=== PATIENT | female | born 1955 | race Caucasian/White ===

== ENCOUNTER 2020-04-07 15:53 | Inpatient (IN) | payer OTHER ==
[~2020-04-07] VITALS: Ht 167.6 cm; Wt 114.9 kg
[2020-04-07 17:19] VITALS: BP 107/89
[2020-04-07 19:30] VITALS: BP 101/68
[2020-04-07 19:45] LABS: BASO % 0.3 % (0.0-1.0); EOS % 0.2 % (1.0-4.0); HEMATOCRIT 33.3 % (37.0-47.0); LYMPH % 17.5 % (27.0-41.0); MEAN CORPUSCULAR HGB 28.7 pg (27.0-31.0); MEAN CORPUSCULAR HGB CONC 33.3 g/dl (33.0-37.0); MEAN PLATELET VOLUME 9.5 fl (9.6-12.3); MONO # 0.2 10*3/uL (0.1-1.0); MONO % 3.9 % (3.0-9.0); NEUT # 4.6 10*3/uL (2.3-7.9); NEUT % 77.4 % (47.0-73.0); PLATELET COUNT AUTOMATED 268 10*3/uL (130-400); RED BLOOD COUNT 3.87 10*6/uL (4.10-5.10); RED CELL DISTRI WIDTH 14.9 % (0-14.5); WHITE BLOOD COUNT 5.9 10*3/uL (4.8-10.8)
[2020-04-07 20:05] LABS: ALBUMIN 3.2 gm/dl (3.1-4.5); ALKALINE PHOSPHATASE 55 U/L (45-117); BUN 12 mg/dl (7-24); CHLORIDE 88 mmol/L (98-107); CREATININE 0.69 mg/dL (0.55-1.02); POTASSIUM 3.8 mmol/L (3.5-5.1); SGOT/AST 40 IU/L (3-35); SGPT/ALT 46 U/L (12-78); SODIUM 124 mmol/L (136-145); TOTAL PROTEIN 7.7 gm/dL (6.4-8.2)
[2020-04-07 20:12] LABS: FREE T4 0.49 ng/dl (0.76-1.46); THYROID STIM HORMONE (HS) 36.9 uIU/ml (0.358-4.75)
[2020-04-07 23:51] VITALS: BP 104/78
[2020-04-08 04:13] VITALS: BP 107/71
[2020-04-08 07:50] VITALS: BP 114/50
[2020-04-08 09:36] LABS: BASO % 0.1 % (0.0-1.0); HEMATOCRIT 33.9 % (37.0-47.0); LYMPH # 0.7 10*3/uL (1.3-4.4); LYMPH % 9.5 % (27.0-41.0); MEAN CELL VOLUME 85.2 fl (81.0-99.0); MEAN CORPUSCULAR HGB 28.4 pg (27.0-31.0); MEAN CORPUSCULAR HGB CONC 33.3 g/dl (33.0-37.0); MEAN PLATELET VOLUME 9.5 fl (9.6-12.3); MONO # 0.2 10*3/uL (0.1-1.0); MONO % 3.2 % (3.0-9.0); NEUT % 86.2 % (47.0-73.0); PLATELET COUNT AUTOMATED 316 10*3/uL (130-400); RED BLOOD COUNT 3.98 10*6/uL (4.10-5.10); RED CELL DISTRI WIDTH 14.6 % (0-14.5)
[2020-04-08 09:46] LABS: ACT PARTIAL THROMBO TIME 32.7 SECONDS (20.0-32.1)
[2020-04-08 10:09] LABS: ALBUMIN 3.2 gm/dl (3.1-4.5); BUN 8 mg/dl (7-24); CHLORIDE 94 mmol/L (98-107); CREATININE 0.61 mg/dL (0.55-1.02); POTASSIUM 4.1 mmol/L (3.5-5.1); SGOT/AST 41 IU/L (3-35); SGPT/ALT 49 U/L (12-78); SODIUM 129 mmol/L (136-145); TOTAL PROTEIN 7.8 gm/dL (6.4-8.2)
[2020-04-08 10:13] LABS: ALKALINE PHOSPHATASE 55 U/L (45-117); CHOLESTEROL 207 mg/dL (<200); HDL CHOLESTEROL 35 mg/dl (40-60); LDH 400 U/L (84-246); LDL CHOLESTEROL 139 mg/dL (9-159); TRIGLYCERIDES 167 mg/dl (<150); VLDL CHOLESTEROL 33 mg/dL (6-40)
[2020-04-08 11:37] LABS: ABG BASE EXCESS 2.6 mmol/L (-2.0-2.0); ARTERIAL BLOOD GAS PH 7.461 (7.35-7.45)
[2020-04-08 11:48] LABS: FERRITIN 845.3 ng/mL (10.0-291.0); VITAMIN D, 25-HYDROXY 16.1 ng/mL (30-100)
[2020-04-08] MEDS ORDERED: SULFAMETHOXAZOLE-TMP (12:16)
[2020-04-08] MEDS ORDERED: ARMOUR THYROID90 M1 PO (12:16)
[2020-04-08 12:20] VITALS: BP 120/60
[2020-04-08 16:38] VITALS: BP 114/50
[2020-04-08 17:17] VITALS: BP 129/64
[2020-04-08 20:00] VITALS: BP 115/58
[2020-04-09] VITALS: BP 122/45
[2020-04-09 05:21] LABS: ALBUMIN 2.8 gm/dl (3.1-4.5); ALKALINE PHOSPHATASE 54 U/L (45-117); BUN 12 mg/dl (7-24); CHLORIDE 99 mmol/L (98-107); CREATININE 0.59 mg/dL (0.55-1.02); LDH 358 U/L (84-246); SGOT/AST 43 IU/L (3-35); SGPT/ALT 65 U/L (12-78); SODIUM 132 mmol/L (136-145); TOTAL PROTEIN 7.5 gm/dL (6.4-8.2)
[2020-04-09 06:58] LABS: HEMATOCRIT 34.5 % (37.0-47.0); MEAN CELL VOLUME 87.6 fl (81.0-99.0); MEAN CORPUSCULAR HGB 28.7 pg (27.0-31.0); MEAN CORPUSCULAR HGB CONC 32.8 g/dl (33.0-37.0); MEAN PLATELET VOLUME 10.1 fl (9.6-12.3); PLATELET COUNT AUTOMATED 392 10*3/uL (130-400); RED BLOOD COUNT 3.94 10*6/uL (4.10-5.10); RED CELL DISTRI WIDTH 14.8 % (0-14.5)
[2020-04-09 08:00] VITALS: BP 123/66
[2020-04-09 08:06] LABS: ATYPICAL LYMPHS 1 % (0-0); PLATELET SUFFICIENCY NORMAL (NORMAL); TOTAL CELLS COUNTED 100 #CELLS
[2020-04-09 12:00] VITALS: BP 119/71
[2020-04-09 16:00] VITALS: BP 128/81
[2020-04-09 20:00] VITALS: BP 119/48
[2020-04-10] VITALS: BP 122/64
[2020-04-10 06:28] LABS: HEMATOCRIT 33.5 % (37.0-47.0); MEAN CELL VOLUME 88.9 fl (81.0-99.0); MEAN CORPUSCULAR HGB 28.6 pg (27.0-31.0); MEAN CORPUSCULAR HGB CONC 32.2 g/dl (33.0-37.0); MEAN PLATELET VOLUME 9.4 fl (9.6-12.3); PLATELET COUNT AUTOMATED 442 10*3/uL (130-400); RED BLOOD COUNT 3.77 10*6/uL (4.10-5.10); RED CELL DISTRI WIDTH 14.9 % (0-14.5); WHITE BLOOD COUNT 8.3 10*3/uL (4.8-10.8)
[2020-04-10 06:54] LABS: ALBUMIN 2.8 gm/dl (3.1-4.5); ALKALINE PHOSPHATASE 56 U/L (45-117); BUN 16 mg/dl (7-24); CHLORIDE 100 mmol/L (98-107); CPK 57 U/L (26-192); CREATININE 0.62 mg/dL (0.55-1.02); LDH 349 U/L (84-246); POTASSIUM 4.2 mmol/L (3.5-5.1); SGOT/AST 49 IU/L (3-35); SGPT/ALT 88 U/L (12-78); SODIUM 137 mmol/L (136-145); TOTAL PROTEIN 7.3 gm/dL (6.4-8.2)
[2020-04-10 06:56] LABS: ATYPICAL LYMPHS 1 % (0-0); TOTAL CELLS COUNTED 100 #CELLS
[2020-04-10 06:57] LABS: OVALOCYTES FEW; PLATELET SUFFICIENCY HIGH (NORMAL); POLYCHROMASIA SLIGHT
[2020-04-10 08:00] VITALS: BP 155/66
[2020-04-10 12:00] VITALS: BP 134/57
[2020-04-10 16:00] VITALS: BP 125/53
[2020-04-10 20:00] VITALS: BP 147/71
[2020-04-10 22:02] LABS: ABG BASE EXCESS 3.8 mmol/L (-2.0-2.0); ARTERIAL BLOOD GAS PH 7.453 (7.35-7.45)
[2020-04-11] VITALS: BP 146/69
[2020-04-11 06:40] LABS: HEMATOCRIT 36.9 % (37.0-47.0); MEAN CELL VOLUME 89.6 fl (81.0-99.0); MEAN CORPUSCULAR HGB 27.9 pg (27.0-31.0); MEAN CORPUSCULAR HGB CONC 31.2 g/dl (33.0-37.0); MEAN PLATELET VOLUME 9.7 fl (9.6-12.3); PLATELET COUNT AUTOMATED 490 10*3/uL (130-400); RED BLOOD COUNT 4.12 10*6/uL (4.10-5.10); RED CELL DISTRI WIDTH 14.8 % (0-14.5)
[2020-04-11 06:58] LABS: ALBUMIN 2.9 gm/dl (3.1-4.5); ALKALINE PHOSPHATASE 64 U/L (45-117); BUN 18 mg/dl (7-24); CHLORIDE 100 mmol/L (98-107); CREATININE 0.67 mg/dL (0.55-1.02); LDH 312 U/L (84-246); POTASSIUM 4.1 mmol/L (3.5-5.1); SGOT/AST 47 IU/L (3-35); SGPT/ALT 119 U/L (12-78); SODIUM 137 mmol/L (136-145); TOTAL PROTEIN 7.6 gm/dL (6.4-8.2)
[2020-04-11 07:03] LABS: PLATELET SUFFICIENCY NORMAL (NORMAL); TOTAL CELLS COUNTED 100 #CELLS
[2020-04-11 07:22] LABS: CPK 33 U/L (26-192); TROPONIN I < 0.015 ng/ml (<0.045)
[2020-04-11 08:00] VITALS: BP 141/66
[2020-04-11 08:05] LABS: ARTERIAL BLOOD GAS PH 7.507 (7.35-7.45)
[2020-04-11 08:06] LABS: ABG BASE EXCESS 4.3 mmol/L (-2.0-2.0)
[2020-04-11 11:57] LABS: BILIRUBIN Negative (Negative); BLOOD Negative (Negative); CLARITY Clear (Clear); COLOR Yellow (Yellow); GLUCOSE Negative (Negative); KETONE Negative (Negative); LEUKO ESTERASE Negative (Negative); NITRITE Negative (Negative); PH 6.5 (4.5-8.0)
[2020-04-11 12:00] VITALS: BP 113/56
[2020-04-11 12:20] LABS: BACTERIA 1+
[2020-04-11 16:00] VITALS: BP 111/61
[2020-04-11 20:00] VITALS: BP 129/54
[2020-04-12] VITALS: BP 150/72
[2020-04-12 06:10] LABS: HEMATOCRIT 35.5 % (37.0-47.0); MEAN CELL VOLUME 91.5 fl (81.0-99.0); MEAN CORPUSCULAR HGB 28.4 pg (27.0-31.0); MEAN PLATELET VOLUME 9.1 fl (9.6-12.3); PLATELET COUNT AUTOMATED 466 10*3/uL (130-400); RED BLOOD COUNT 3.88 10*6/uL (4.10-5.10); RED CELL DISTRI WIDTH 15.1 % (0-14.5)
[2020-04-12 06:31] LABS: CHLORIDE 100 mmol/L (98-107); POTASSIUM 4.1 mmol/L (3.5-5.1); SODIUM 135 mmol/L (136-145)
[2020-04-12 06:38] LABS: ALBUMIN 2.8 gm/dl (3.1-4.5); ALKALINE PHOSPHATASE 54 U/L (45-117); BUN 18 mg/dl (7-24); CPK 29 U/L (26-192); CREATININE 0.57 mg/dL (0.55-1.02); LDH 272 U/L (84-246); SGOT/AST 34 IU/L (3-35); SGPT/ALT 102 U/L (12-78); TOTAL PROTEIN 6.8 gm/dL (6.4-8.2)
[2020-04-12 07:21] LABS: BURR CELLS FEW; OVALOCYTES FEW; PLATELET SUFFICIENCY HIGH (NORMAL); POLYCHROMASIA SLIGHT; TOTAL CELLS COUNTED 100 #CELLS
[2020-04-12 08:00] VITALS: BP 126/52; BP 126/72
[2020-04-12 12:00] VITALS: BP 120/60
[2020-04-12 20:00] VITALS: BP 106/52
[2020-04-13 08:00] VITALS: BP 127/58
[2020-04-13] MEDS ORDERED: NP THYROID30 MG PO (09:56)
[2020-04-13] MEDS ORDERED: VITAMIN D350 MC2 PO (09:56)
[2020-04-13] MEDS ORDERED: DECADRON6 M1 PO (09:57)
[2020-04-13 12:00] VITALS: BP 113/46
== END 2020-04-13 15:45 | disposition home or self-care (01) | DRG 177 ==
LOC: ED 15:53 → 4E 20:22 → EDHOLD 20:22 → 4E 04-08 16:57
PROVIDERS: Hospitalist; Internal Medicine; Internal Medicine Critical Care Medicine; Registered Nurse; Student in an Organized Health Care Education/Training Program; ADMIT Internal Medicine; ATTEND Internal Medicine
PROC: XW033E5 Introduction of Remdesivir Anti-infective into Peripheral Vein, Percutaneous Approach, New Technology Group 5 (ICD-10-PCS; principal; 2020-04-08)
DX: U07.1 COVID-19 (principal); J12.82 Pneumonia due to coronavirus disease 2019; G93.41 Metabolic encephalopathy; E43 Unspecified severe protein-calorie malnutrition; J96.01 Acute respiratory failure with hypoxia; E87.1 Hypo-osmolality and hyponatremia; Z68.41 Body mass index [BMI] 40.0-44.9, adult; D64.9 Anemia, unspecified; G47.33 Obstructive sleep apnea (adult) (pediatric); E03.9 Hypothyroidism, unspecified; R74.01 Elevation of levels of liver transaminase levels; Z90.49 Acquired absence of other specified parts of digestive tract; E66.01 Morbid (severe) obesity due to excess calories; D47.3 Essential (hemorrhagic) thrombocythemia; Z83.3 Family history of diabetes mellitus

== ENCOUNTER → 2020-08-01 | Outpatient (CLI) | payer MEDICARE ==
[~2020-08-01] MED LIST: ARMOUR THYROID90 M1 PO; DECADRON6 M1 PO; NP THYROID30 MG PO; SULFAMETHOXAZOLE-TMP; VITAMIN D350 MC2 PO
== END | disposition home or self-care (01) ==
LOC: RESCLI 13:18
PROVIDERS: ATTEND Internal Medicine
DX: E55.9 Vitamin D deficiency, unspecified (principal); E03.9 Hypothyroidism, unspecified; E78.5 Hyperlipidemia, unspecified; R63.4 Abnormal weight loss; Z23 Encounter for immunization; Z79.899 Other long term (current) drug therapy; Z90.49 Acquired absence of other specified parts of digestive tract

== ENCOUNTER → 2020-11-26 | Outpatient (CLI) | payer MEDICARE | END | disposition home or self-care (01) | LOC: RESCLI 00:20 | PROVIDERS: ATTEND Internal Medicine Nephrology | DX: E03.9 Hypothyroidism, unspecified (principal); E55.9 Vitamin D deficiency, unspecified; G47.30 Sleep apnea, unspecified; E66.9 Obesity, unspecified; Z23 Encounter for immunization; Z79.899 Other long term (current) drug therapy; Z90.49 Acquired absence of other specified parts of digestive tract ==

== ENCOUNTER → 2020-11-28 | Outpatient (CLI) | payer MEDICARE | END | disposition home or self-care (01) | LOC: LAB 09:12 | PROVIDERS: ATTEND Internal Medicine | DX: E03.9 Hypothyroidism, unspecified (principal) ==

== ENCOUNTER 2021-03-05 23:29 | Emergency (ER) | payer MEDICARE ==
[~2021-03-05] VITALS: Wt 122.5 kg
[2021-03-06 00:09] LABS: BASO % 0.3 % (0.0-1.0); EOS # 0.4 10*3/uL (0.0-0.4); EOS % 4.8 % (1.0-4.0); LYMPH # 2.9 10*3/uL (1.3-4.4); LYMPH % 33.1 % (27.0-41.0); MEAN CELL VOLUME 90.5 fl (81.0-99.0); MEAN CORPUSCULAR HGB CONC 32.1 g/dl (33.0-37.0); MEAN PLATELET VOLUME 10.3 fl (9.6-12.3); MONO # 0.6 10*3/uL (0.1-1.0); NEUT # 4.7 10*3/uL (2.3-7.9); NEUT % 54.3 % (47.0-73.0); PLATELET COUNT AUTOMATED 324 10*3/uL (130-400); WHITE BLOOD COUNT 8.7 10*3/uL (4.8-10.8)
== END 2021-03-06 03:01 | disposition home or self-care (01) ==
LOC: ED 23:29
PROVIDERS: Internal Medicine
DX: R04.0 Epistaxis (principal)

== ENCOUNTER 2021-03-06 14:13 | Emergency (ER) | payer MEDICARE ==
[~2021-03-06] VITALS: Ht 165.1 cm; Wt 122.5 kg
== END 2021-03-06 20:05 | disposition home or self-care (01) ==
LOC: ED 14:13
DX: R04.0 Epistaxis (principal)

== ENCOUNTER → 2021-09-02 | Outpatient (CLI) | payer MEDICARE | END | disposition home or self-care (01) | LOC: COVID19 01:39 | PROVIDERS: ATTEND Internal Medicine | DX: Z20.822 Contact with and (suspected) exposure to COVID-19 (principal) ==

== ENCOUNTER 2021-11-09 23:04 | Emergency (ER) | payer MEDICARE ==
[~2021-11-09] VITALS: Ht 167.6 cm; Wt 122.5 kg
== END 2021-11-10 00:11 | disposition home or self-care (01) ==
LOC: ED 23:04
DX: R04.0 Epistaxis (principal); Z90.49 Acquired absence of other specified parts of digestive tract

== ENCOUNTER 2021-11-10 14:05 | Emergency (ER) | payer MEDICARE ==
[~2021-11-10] VITALS: Ht 167.6 cm; Wt 122.5 kg
== END 2021-11-10 18:32 | disposition home or self-care (01) ==
LOC: ED 14:05
DX: R04.0 Epistaxis (principal); Z79.899 Other long term (current) drug therapy; Z90.49 Acquired absence of other specified parts of digestive tract

== ENCOUNTER → 2021-12-23 | Outpatient (CLI) | payer MEDICARE ==
[2021-12-23 09:32] LABS: BASO % 0.5 % (0.0-1.0); EOS # 0.4 10*3/uL (0.0-0.4); HEMATOCRIT 40.4 % (37.0-47.0); LYMPH # 1.8 10*3/uL (1.3-4.4); LYMPH % 24.4 % (27.0-41.0); MEAN CELL VOLUME 90.8 fl (81.0-99.0); MEAN CORPUSCULAR HGB CONC 31.9 g/dl (33.0-37.0); MEAN PLATELET VOLUME 10.3 fl (9.6-12.3); MONO # 0.5 10*3/uL (0.1-1.0); NEUT # 4.8 10*3/uL (2.3-7.9); NEUT % 63.6 % (47.0-73.0); PLATELET COUNT AUTOMATED 295 10*3/uL (130-400); RED BLOOD COUNT 4.45 10*6/uL (4.10-5.10); RED CELL DISTRI WIDTH 13.6 % (0-14.5); WHITE BLOOD COUNT 7.5 10*3/uL (4.8-10.8)
[2021-12-23 09:50] LABS: ALKALINE PHOSPHATASE 70 U/L (45-117); BUN 16 mg/dl (7-24); CHLORIDE 107 mmol/L (98-107); CHOLESTEROL 213 mg/dL (<200); CREATININE 0.63 mg/dL (0.55-1.02); LDL CHOLESTEROL 127 mg/dL (9-159); POTASSIUM 4.4 mmol/L (3.5-5.1); SGOT/AST 16 IU/L (3-35); SGPT/ALT 40 U/L (12-78); SODIUM 140 mmol/L (136-145); TOTAL PROTEIN 7.9 gm/dL (6.4-8.2); TRIGLYCERIDES 258 mg/dl (<150)
== END | disposition home or self-care (01) ==
LOC: RESCLI 02:03
PROVIDERS: Internal Medicine; ATTEND Emergency Medicine
DX: E78.5 Hyperlipidemia, unspecified (principal); E03.9 Hypothyroidism, unspecified; D64.9 Anemia, unspecified

== ENCOUNTER → 2022-12-02 | Outpatient (CLI) | payer OTHER | END | disposition home or self-care (01) | LOC: RESCLI 08:06 | PROVIDERS: ATTEND Family Medicine | DX: E03.9 Hypothyroidism, unspecified (principal); G47.30 Sleep apnea, unspecified; E78.5 Hyperlipidemia, unspecified; E55.9 Vitamin D deficiency, unspecified; E53.8 Deficiency of other specified B group vitamins; Z79.899 Other long term (current) drug therapy; Z90.49 Acquired absence of other specified parts of digestive tract ==

== ENCOUNTER → 2022-12-27 | Outpatient (CLI) | payer OTHER ==
[2022-12-27 08:37] LABS: BASO % 0.3 % (0.0-1.0); EOS # 0.3 10*3/uL (0.0-0.4); EOS % 4.7 % (1.0-4.0); HEMATOCRIT 38.1 % (37.0-47.0); LYMPH # 1.6 10*3/uL (1.3-4.4); MEAN CELL VOLUME 89.6 fl (81.0-99.0); MEAN CORPUSCULAR HGB 28.9 pg (27.0-31.0); MEAN CORPUSCULAR HGB CONC 32.3 g/dl (33.0-37.0); MEAN PLATELET VOLUME 9.6 fl (9.6-12.3); MONO # 0.4 10*3/uL (0.1-1.0); MONO % 5.3 % (3.0-9.0); NEUT # 4.5 10*3/uL (2.3-7.9); NEUT % 65.4 % (47.0-73.0); PLATELET COUNT AUTOMATED 282 10*3/uL (130-400); RED BLOOD COUNT 4.25 10*6/uL (4.10-5.10); WHITE BLOOD COUNT 6.8 10*3/uL (4.8-10.8)
[2022-12-27 09:10] LABS: ALKALINE PHOSPHATASE 76 U/L (46-116); BUN 12 mg/dl (9-23); CHLORIDE 106 mmol/L (98-107); CHOLESTEROL 189 mg/dL (<200); LDL CHOLESTEROL 116 mg/dL (9-159); POTASSIUM 4.2 mmol/L (3.4-5.1); SGPT/ALT 36 U/L (10-49); TOTAL PROTEIN 7.6 gm/dL (6.0-8.0); TRIGLYCERIDES 193 mg/dl (<150)
[2022-12-27 09:14] LABS: VITAMIN D, 25-HYDROXY 25.6 ng/mL (30-100)
== END | disposition home or self-care (01) ==
LOC: LAB 08:20
PROVIDERS: ATTEND Student in an Organized Health Care Education/Training Program
DX: E78.5 Hyperlipidemia, unspecified (principal); E03.9 Hypothyroidism, unspecified; E55.9 Vitamin D deficiency, unspecified; E53.8 Deficiency of other specified B group vitamins

== ENCOUNTER → 2023-01-17 | Outpatient (CLI) | payer OTHER ==
[2023-01-17 09:40] LABS: FREE T4 0.91 ng/dl (0.89-1.76)
== END | disposition home or self-care (01) ==
LOC: LAB 08:23
PROVIDERS: ATTEND Student in an Organized Health Care Education/Training Program
DX: E03.9 Hypothyroidism, unspecified (principal)

== ENCOUNTER → 2023-11-21 | Outpatient (CLI) | payer OTHER ==
[2023-11-21 11:48] LABS: FREE T4 1.12 ng/dl (0.89-1.76)
== END | disposition home or self-care (01) ==
LOC: RESCLI 02:23
PROVIDERS: Student in an Organized Health Care Education/Training Program; ATTEND Internal Medicine
DX: E03.9 Hypothyroidism, unspecified (principal); E78.5 Hyperlipidemia, unspecified; E55.9 Vitamin D deficiency, unspecified; Z90.49 Acquired absence of other specified parts of digestive tract; Z88.8 Allergy status to other drugs, medicaments and biological substances; Z79.899 Other long term (current) drug therapy